=== PATIENT | female | born 2005 | race Caucasian/White ===

== ENCOUNTER 2024-04-27 16:28 | Emergency (ER) | payer MEDICAID ==
[~2024-04-27] VITALS: Ht 167.6 cm; Wt 66.6 kg
[2024-04-27 17:18] LABS: INFLUENZA B NAA NEGATIVE (NEGATIVE); RESPIRATORY SYNCYTIAL VIR NAA NEGATIVE (NEGATIVE)
[2024-04-27 18:07] VITALS: BP 104/72
[2024-04-28] MEDS ORDERED: ONDANSETRON ODT8 MG PO (22:53)
[2024-04-28] MEDS ORDERED: PROMETHEGAN25 MG PR (22:53)
== END 2024-04-27 18:07 | disposition home or self-care (01) ==
LOC: ED 16:28
PROVIDERS: Emergency Medicine
DX: O99.512 Diseases of the respiratory system complicating pregnancy, second trimester (principal); J06.9 Acute upper respiratory infection, unspecified; Z3A.15 15 weeks gestation of pregnancy; Z88.0 Allergy status to penicillin; Z11.52 Encounter for screening for COVID-19
CPT/HCPCS: 87502; 87651; 99283; U0002

== ENCOUNTER 2024-04-28 19:44 | Emergency (ER) | payer MEDICAID ==
[~2024-04-28] VITALS: Ht 167.6 cm; Wt 66.0 kg
--- OUTSIDE RECORDS SUMMARY | ~2024-04-28 | XMS | Continuity of Care Document ---
Demographics + + + | Address | [address] | | | [place] [address] | + + + | Preferred Language | Unknown | + + + | Marital Status | Never | + + + | Church Affiliation | Unknown | + + + | Race | White | + + + | Ethnic Group | Unknown | + + + Author + + + | Author | [facility] | + + + | Organization | [facility] | + + + | Address | [address] | | | [place] [address] | + + + | Phone | | + + + Care Team Providers + + + + | Care Upward Bound Director Name | Role | Phone | + + + + Unavailable | Unavailable | + + + + Unavailable | Unavailable | + + + + Allergies No information. Encounters No information. Functional Status No information. Immunizations No information. Medications No information. Problems + + + + | date | description | facility | + + + + | 2024-02-27 16:34:51 | Encounter for supervision | [facility] | | | of normal , | | | | unspecified, unspecified | | | | trimester | | + + + + Procedures No information. Results/Labs +--------+--------+ +---------+--------+---------+ | test | date | facility | value | unit | notes | +--------+--------+ +---------+--------+---------+ + + | Result panel 1 | + + + + + + + + + | URINE | 2024-02-27 | [facility] | Culture in | (missing) | (missing) | | CULTURE | 16:35:47 | Medical | progress; | | | | | | Center | further | | | | | | | incubation | | | | | | | required | | | + + + + + + + | URINE | 2024-02-27 | [facility] | Mixed Skin | (missing) | (missing) | | CULTURE | 16:35:47 | Medical | / Genital | | | | | | Center | Jacey | | | + + + + + + + | CHLAMYDIA | 2024-02-27 | [facility] | Not | (missing) | (missing) | | BY PCR | 16:35:47 | Medical | Detected | | | | | | Center | | | | + + + + + + + | GC BY PCR | 2024-02-27 | [facility] | Not | (missing) | INTERPRETATI | | | 16:35:47 | Medical | Detected | | ON: The | | | | Center | | | results are | | | | | | | interpreted | | | | | | | by the | | | | | | | GeneXpert | | | | | | | System from | | | | | | | measured | | | | | | | fluorescent | | | | | | | signals and | | | | | | | embedded | | | | | | | calculation | | | | | | | algorithms. | | | | | | | LIMITATIONS: | | | | | | | Results | | | | | | | from the | | | | | | | this assay | | | | | | | should be | | | | | | | interpreted | | | | | | | in | | | | | | | conjunction | | | | | | | with other | | | | | | | laboratory | | | | | | | and clinical | | | | | | | data | | | | | | | available to | | | | | | | the | | | | | | | clinician. | | | | | | | REFERENCE: | | | | | | | Cepheid | | | | | | | product | | | | | | | insert | | | | | | | [phone], | | | | | | | Rev. B | | | | | | | July 2012 | + + + + + + + Social History +--------+ + + | date | description | facility | +--------+ + + Vital Signs No information."
--- OUTSIDE RECORDS SUMMARY | 2024-04-28 19:51 | XMS ---
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 Nelyl has no Care Guidelines for this patient. [facility] (12 MO.) [facility] TOTAL 2 NOTE: Visits indicate total known visits. ED/[facility] VISIT TRACKING (12 MO.) [facility] COMPLAINT: - VOMITING 04/27/2024 16:28 [facility] [place] TYPE: Emergency COMPLAINT: - FEVER/15 WEEKS DIAGNOSES: - 15 weeks gestation of - Acute pharyngitis, unspecified - Acute upper respiratory infection, unspecified - Allergy status to penicillin - Diseases of the respiratory system complicating , second trimester - Encounter for screening for COVID-19 INPATIENT VISIT TRACKING (12 MO.) No inpatient visits to display in this time frame [email or web address]
[2024-04-28 20:29] LABS: BILIRUBIN, URINE NEGATIVE (negative); BLOOD/HGB, URINE NEGATIVE (Negative); KETONE, URINE NEGATIVE (Negative); LEUK ESTERASE, URINE NEGATIVE (negative); NITRITE, URINE NEGATIVE (negative)
[2024-04-28] MEDS ORDERED: SODIUM CHLORIDE 0.9% 1,000 ML IV ONE (20:30)
[2024-04-28] MEDS ORDERED: ACETAMINOPHEN 500 MG TAB PO ONE (20:30)
[2024-04-28] MEDS ORDERED: ondansetron HCL 4 MG/2 ML VIAL IV ONE (20:30)
[2024-04-28] MEDS ORDERED: CEFTRIAXONE/SODIUM CHLORIDE 2 GM/100 ML PIGGYBACK IV ONE (20:30)
[2024-04-28 20:33] LABS: BASOPHILS 0.4 % (0-2); EOSINOPHILS 0.7 % (0-6); HEMATOCRIT 37.8 % (35.0-50.0); HEMOGLOBIN 13.2 g/dL (12.0-18.0); LYMPHOCYTES 10.4 % (24-44); MCH 28.3 (27-36); MCHC 34.8 g/dl (30-36); MCV 81.2 fl (81-99); MONOCYTES 8.5 % (0-12); PLATELET COUNT 236 K/uL (140-440); RBC 4.66 M/ul (4.3-5.7); RDW 12.7 (10.5-15.0)
[2024-04-28 20:51] LABS: ALBUMIN 2.9 g/dL (3.4-5.0); ALBUMIN/GLOBULIN RATIO 0.66 (1.1-2.4); ANION GAP 14.4 (7-21); BILIRUBIN, TOTAL 0.7 ng/dL (0.2-1.0); BUN/CREATININE RATIO 5.17 (6.0-28.6); CALCIUM 9.2 mg/dL (8.5-10.1); CREATININE, SERUM 0.58 mg/dL (0.55-1.02); POTASSIUM 3.4 mmol/L (3.5-5.1); PROTEIN, TOTAL 7.3 g/dL (6.4-8.2)
[2024-04-28 21:13] LABS: INFLUENZA B NAA NEGATIVE (NEGATIVE); RESPIRATORY SYNCYTIAL VIR NAA NEGATIVE (NEGATIVE)
[2024-04-28] MEDS ORDERED: ONDANSETRON ODT8 MG PO (22:53)
[2024-04-28] MEDS ORDERED: PROMETHEGAN25 MG PR (22:53)
[2024-04-28 23:24] VITALS: BP 92/61
[2024-04-29] MEDS ORDERED: CLINDAMYCIN HC300 MG PO (20:20)
--- NOTE | 2024-04-29 21:42 | EKG ---
[facility] [address] [place], [place] [address] Signed Normal sinus rhythm Normal ECG No previous ECGs available Confirmed by Gerardo Carrera MD ([id number]) on 04/29/2024 9:42:10 PM Electronically Signed By: GERARDO CARRERA DO 04/29/242141 PATIENT NAME: HAJA ASHRAFPrice MCARTHUR Electrocardiogram DATE OF : [birth year] PHYSICIAN: GERARDO CARRERA DO REPORT #: [id number] REPORT IS CONFIDENTIAL AND NOT TO BE RELEASED WITHOUT AUTHORIZATION
== END 2024-04-28 23:26 | disposition home or self-care (01) ==
LOC: ED 19:44
PROVIDERS: Family Medicine
DX: O98.512 Other viral diseases complicating pregnancy, second trimester (principal); B34.9 Viral infection, unspecified; O99.282 Endocrine, nutritional and metabolic diseases complicating pregnancy, second trimester; E86.0 Dehydration; Z3A.16 16 weeks gestation of pregnancy; Z88.0 Allergy status to penicillin
CPT/HCPCS: 36415; 76705; 76815; 80053; 81003; 83605; 85025; 87040; 87502; 93005; 93010; 96365; 96375; 99284-25; A9270; J0696; J2405; J7030; U0002

== ENCOUNTER 2024-04-29 18:13 | Emergency (ER) | payer MEDICAID ==
[~2024-04-29] VITALS: Ht 167.6 cm; Wt 66.9 kg
--- OUTSIDE RECORDS SUMMARY | ~2024-04-29 | XMS | Continuity of Care Document ---
Demographics + + + | Address | [address] | | | [place] [address] | + + + | Preferred Language | Unknown | + + + | Marital Status | Never | + + + | Yarsanism Affiliation | Unknown | + + + | Race | White | + + + | Ethnic Group | Unknown | + + + Author + + + | Author | [facility] | + + + | Organization | [facility] | + + + | Address | [address] | | | [place] [address] | + + + | Phone | | + + + Care Team Providers + + + + | Care Medical Or Surgical Instrument Maker Name | Role | Phone | + [...] 2024-02-27 16:34:51 | Encounter for supervision | [facility] | | | of normal , | [...] | | | | | | | [phone], | | | | | | | Rev. B | | | | | | | July 2012 | + + + + + + + Social History +--------+ + + | date | description | facility | +--------+ + + Vital Signs No information."
[~2024-04-29 18:13] MED LIST: ONDANSETRON ODT8 MG PO; PROMETHEGAN25 MG PR
--- OUTSIDE RECORDS SUMMARY | 2024-04-29 18:19 | XMS ---
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 Nelly has no Care Guidelines for this patient. Tam[facility] V[facility] COUNT (12 MO.) [facility] TOTAL 3 NOTE: Visits indicate total known visits. ED/[facility] VISIT TRACKING (12 MO.) [facility] COMPLAINT: - THROAT PAIN 04/28/2024 19:44 [facility] TYPE: Emergency COMPLAINT: - VOMITING 04/27/2024 [...] visits to display in this time frame [email or web address]
[2024-04-29] MEDS ORDERED: CLINDAMYCIN HC300 MG PO (20:20)
[2024-04-29] MEDS ORDERED: clindamycin HCL 300 MG HOME.PACK PO ONE (20:30)
[2024-04-29] MEDS ORDERED: DEXAMETHASONE SOD PHOS 10 MG/ML VIAL IM ONE (20:30)
[2024-04-29 21:05] VITALS: BP 102/70
== END 2024-04-29 21:05 | disposition home or self-care (01) ==
LOC: ED 18:13
DX: O99.512 Diseases of the respiratory system complicating pregnancy, second trimester (principal); J36 Peritonsillar abscess; Z3A.15 15 weeks gestation of pregnancy; Z88.0 Allergy status to penicillin
CPT/HCPCS: 87651; 96372; 99283; J1100